=== PATIENT | male | born 1965 | race Two or more races ===

== ENCOUNTER 2017-09-23 09:00 | Emergency (ER) | payer OTHER ==
[~2017-09-23] VITALS: Wt 80.9 kg
[2017-09-23] MEDS ORDERED: ONDANSETRON 4 MG INJ IV STA (10:23)
[2017-09-23] MEDS ORDERED: HYDROmorphONE 1 MG/ML SYG IV STA (10:23)
[2017-09-23 10:52] LABS: BASOPHIL # 0.1 10^3/ul (0.0-0.1); BASOPHILS % 0.7 % (0.0-2.0); EOSINOPHILS # 0.3 10^3/ul (0.0-0.5); EOSINOPHILS % 2.8 % (0.0-7.0); HEMOGLOBIN 15.9 g/dl (14.0-18.0); LYMPHOCYTES # 2.2 10^3/ul (0.8-2.9); LYMPHOCYTES % 23.9 % (15.0-51.0); MEAN CORPUSCULAR HGB CONC 31.8 g/dl (32.0-37.0); MEAN CORPUSCULAR VOLUME 81.7 fl (82.0-101.0); MEAN PLATELET VOLUME 10.1 fl (7.4-10.4); MONOCYTE # 0.8 10^3/ul (0.3-0.9); NEUTROPHILS % 64.1 % (39.0-77.0); PLATELET COUNT 258 10^3/UL (140-415); RED BLOOD COUNT 6.12 10^6/ul (4.70-6.10); RED CELL DISTRIBUTION WIDTH 14.5 % (11.5-14.5); WHITE BLOOD COUNT 9.4 10^3/ul (4.8-10.8)
[2017-09-23 11:13] LABS: ALBUMIN 4.2 g/dl (3.3-4.9); ALBUMIN/GLOBULIN RATIO 1.05; BILIRUBIN,INDIRECT 0.2 mg/dl (0-1.1); BILIRUBIN,TOTAL 0.2 mg/dl (0.2-1.3); CALCIUM 8.6 mg/dl (8.4-10.2); CREATININE 0.82 mg/dl (0.61-1.24); POTASSIUM 3.9 mmol/L (3.5-5.1); TOTAL PROTEIN 8.2 g/dl (6.1-8.1)
--- NOTE | 2017-09-23 12:01 | ERD ---
ER Documentation Chief Complaint Chief Complaint llq pain w diarrhea HPI This a 52 male complains of left lower quadrant pain and diarrhea over the past 2-3 days. Diarrhea is nonbloody. Pain is described as sharp and nonradiating is located in the left lower quadrant with occasional crampy episodes. No back pain dysuria hematuria no chest pain shortness of breath no prior history of colon disease or diverticulitis. Pain is currently moderate ROS All systems reviewed and are negative except as per history of present illness. Medications Home Meds Active Scripts Hydrocodone/Acetaminophen ([place] 10-325 Tablet) 1 Each Tablet, 1 TAB PO Q6H Y for PAIN, #20 TAB Prov:RICARDO SCOTTSTLOIS A. DO 09/23/17 Metronidazole* (Flagyl*) 500 Mg Tablet, 500 MG PO TID for 10 Days, TAB Prov:LEKKOS,RICARDOSTOLOS A. DO 09/23/17 Ciprofloxacin Hcl* (Ciprofloxacin Hcl*) 500 Mg Tablet, 500 MG PO BID for 10 Days , TAB Prov:TAWNYA SCOTTS A. DO 09/23/17 Allergies Allergies: Coded Allergies: No Known Allergy (Unverified , 09/23/17) PMhx/Soc History of Surgery: Yes (HERNIA REPAIR KIDNEY STONES) Anesthesia Reaction: No Hx Neurological Disorder: No Hx Respiratory Disorders: No Hx Cardiac Disorders: No Hx Psychiatric Problems: No Hx Miscellaneous Medical Probl: No Hx Substance Use: No Hx Tobacco Use: No Smoking Status: Never smoker FmHx Family History: No coronary disease Physical Exam Vitals Vital Signs Date Time Temp Pulse Resp B/P Pulse Ox O2 Delivery O2 Flow Rate FiO2 09/23/17 09:10 98.0 74 20 168/95 98 Physical Exam Const: Well-developed, well-nourished Head: Atraumatic, normocephalic Eyes: Normal Conjunctiva, PERRLA, EOMI, normal sclera, no nystagmus ENT: Normal External Ears, Nose and Mouth, moist mucus membranes. Neck: Full range of motion. No meningismus, no lymphadenopathy. Resp: Clear to auscultation bilaterally, no wheezing, rhonchi, rales Cardio: Regular rate and rhythm, no murmurs, S1 S2 present Abd: Soft, moderate left lower quadrant pain, non distended. Normal bowel sounds, no guarding or rebound, no pulsitile abdominal masses or bruits Skin: No petechiae or rashes, no ecchymosis , no maculopapular rash Back: No midline or flank tenderness Ext: No cyanosis, or edema, FROM x 4, normal inspection, neurovascularly intact x 4 Neur: Awake and alert, STR 5/5 x 4, sensation intact x 4, no focal findings, cerebellum intact Psych: Normal Mood and Affect Result Diagram: 09/23/17 1035 09/23/17 1035 Results 24 hrs Laboratory Tests Test 09/23/17 10:35 White Blood Count 9.410^3/ul Red Blood Count 6.1210^6/ul Hemoglobin 15.9g/dl Hematocrit 50.0% Mean Corpuscular Volume 81.7fl Mean Corpuscular Hemoglobin 26.0pg Mean Corpuscular Hemoglobin Concent 31.8g/dl Red Cell Distribution Width 14.5% Platelet Count 58942^3/UL Mean Platelet Volume 10.1fl Neutrophils % 64.1% Lymphocytes % 23.9% Monocytes % 8.0% Eosinophils % 2.8% Basophils % 0.7% Nucleated Red Blood Cells % 0.0/100WBC Neutrophils # 6.010^3/ul Lymphocytes # 2.210^3/ul Monocytes # 0.810^3/ul Eosinophils # 0.310^3/ul Basophils # 0.110^3/ul Nucleated Red Blood Cells # 0.010^3/ul Sodium Level 145mmol/L Potassium Level 3.9mmol/L Chloride Level 108mmol/L Carbon Dioxide Level 27mmol/L Anion Gap 14 Blood Urea Nitrogen 12mg/dl Creatinine 0.82mg/dl Glucose Level 94mg/dl Calcium Level 8.6mg/dl Total Bilirubin 0.2mg/dl Direct Bilirubin 0.00mg/dl Indirect Bilirubin 0.2mg/dl Aspartate Amino Transf (AST/SGOT) 32IU/L Alanine Aminotransferase (ALT/SGPT) 45IU/L Alkaline Phosphatase 81IU/L Total Protein 8.2g/dl Albumin 4.2g/dl Globulin 4.00g/dl Albumin/Globulin Ratio 1.05 Current Medications Medications (Trade) Dose Ordered Sig/Faizan Route PRN Reason Start Time Stop Time Status Last Admin Dose Admin Hydromorphone HCl (Dilaudid) 1 mg ONCE STAT IV 09/23/17 10:23 09/23/17 10:25 DC Ondansetron HCl (Zofran Inj) 4 mg ONCE STAT IV 09/23/17 10:23 09/23/17 10:25 DC IV Flush 10 ml 10 ml STK-MED ONCE .ROUTE 09/23/17 12:06 09/23/17 12:07 DC Sodium Chloride (NS) 100 ml @ ud STK-MED ONCE .ROUTE 09/23/17 12:06 09/23/17 12:07 DC Iohexol (Omnipaque 300mg/ ml) 150 ml STK-MED ONCE .ROUTE 09/23/17 12:06 09/23/17 12:07 DC Procedures/MDM PROCEDURE: CT ABDOMEN AND PELVIS WITH IV CONTRAST. CLINICAL INDICATION: Left lower quadrant pain TECHNIQUE: CT scan of the abdomen and pelvis without contrast was performed on a multidetector high-resolution CT scanner following the use of IV contrast. 90 cc Omnipaque-300 was administered. Coronal and sagittal reformatted images were obtained from the axial source images. Images were reviewed on a high- resolution PACS workstation. The total exam CTDI equals 15.3 mGy and the total exam DLP equals 946 mGy-cm. One or more of the following dose reduction techniques were used: Automated exposure control. Adjustment of the mA and/or kV according to patient size. Use of iterative reconstruction technique. DICOM images are available. COMPARISON: None FINDINGS: CT abdomen: The lung bases are clear. The heart size is within limits. There is no significant pericardial effusion. Hepatic morphology is within limits. No gross masses or lesions. Gallbladder is unremarkable. No evidence of intrahepatic or extrahepatic biliary dilatation. The spleen and pancreas are within limits. Both adrenal glands are within normal limits. Both kidneys are in normal anatomic position. No evidence of obstruction or hydronephrosis. No gross renal/ureteric calculi. The visualized GI tract demonstrates normal caliber loops of small and large bowel. No evidence of bowel obstruction. The appendix is within limits. The aorta is unremarkable. There is no significant retroperitoneal lymphadenopathy. CT pelvis: The bladder demonstrates thickening of the ernst. There is diffuse diverticulosis of the colon, most severe within the left colon and sigmoid colon. There is a focal fat containing lesion measuring 1.4 cm adjacent to the proximal sigmoid colon with adjacent fat stranding and inflammation. There is also inflammation of the proximal adjacent sigmoid colon. The prostate gland is normal size. No significant pelvic lymphadenopathy. No significant free fluid. No gross focal fluid collections. The visualized osseous structures appears to be within normal limits. IMPRESSION: 1. ACUTE INFLAMMATION WITHIN LEFT LOWER QUADRANT. THERE IS A 1.4 CM FAT- CONTAINING LESION ADJACENT TO PROXIMAL SIGMOID COLON WITH ADJACENT FAT STRANDING. FINDINGS ARE LIKELY CONSISTENT WITH BENIGN EPIPLOIC APPENDAGITIS. THERE IS ALSO MILD ADJACENT INFLAMMATION OF THE PROXIMAL SIGMOID COLON. 2. Diffuse colonic diverticulosis most severe within the left colon and sigmoid colon. 3. Thickening of the wall the bladder, which may represent infectious versus inflammatory cystitis. 4. No free fluid or free air. No gross focal fluid collections. 5. No evidence of bowel obstruction. The appendix is within normal limits. RPTAT: AARR Physician Annel Date Time Electronically viewed and signed by Physician Annel on 09/23/2017 12:33 JL/ CC: JUAN SCOTT DO Discussed with the patient home care and signs and symptoms to return. Will treat with diverticulitis with Cipro Flagyl and pain control Departure Diagnosis: Primary Impression: Diverticulitis Additional Impression: Appendicitis epiploica Condition: Stable JUAN SCOTT DO Sep 23, 2017 12:01
[2017-09-23] MEDS ORDERED: SOD CHLORIDE 0.9% 100 ML ONE (12:06)
[2017-09-23] MEDS ORDERED: IOHEXOL 300MG/ML 150 ML BTL ONE (12:06)
--- NOTE | 2017-09-23 12:33 | RADRPT ---
PROCEDURE: CT ABDOMEN AND PELVIS WITH IV CONTRAST. CLINICAL INDICATION: Left lower quadrant pain TECHNIQUE: CT scan of the abdomen and pelvis without contrast was performed on a multidetector hig h-resolution CT scanner following the use of IV contrast. 90 cc Omnipaque-300 was administered. María Elena nal and sagittal reformatted images were obtained from the axial source images. Images were reviewed on a high-resolution PACS workstation. The total exam CTDI equals 15.3 mGy and the total exam DLP e quals 946 mGy-cm. One or more of the following dose reduction techniques were used: Automated exposure control. Adjustment of the mA and/or kV according to patient size. Use of iterative reconstruction technique. DICOM images are available. COMPARISON: None FINDINGS: CT abdomen: The lung bases are clear. The heart size is within limits. There is no significant pericardial effus ion. Hepatic morphology is within limits. No gross masses or lesions. Gallbladder is unremarkable. No christiano dence of intrahepatic or extrahepatic biliary dilatation. The spleen and pancreas are within limits. Both adrenal glands are within normal limits. Both kidneys are in normal anatomic position. No evidence of obstruction or hydronephrosis. No gross renal/ureteric calculi. The visualized GI tract demonstrates normal caliber loops of small and large bowel. No evidence of b owel obstruction. The appendix is within limits. The aorta is unremarkable. There is no significant retroperitoneal lymphadenopathy. CT pelvis: The bladder demonstrates thickening of the ernst. There is diffuse diverticulosis of the colon, most severe within the left colon and sigmoid colon. There is a focal fat containing lesion measuring 1. 4 cm adjacent to the proximal sigmoid colon with adjacent fat stranding and inflammation. There is a lso inflammation of the proximal adjacent sigmoid colon. The prostate gland is normal size. No signi ficant pelvic lymphadenopathy. No significant free fluid. No gross focal fluid collections. The visualized osseous structures appears to be within normal limits. IMPRESSION: 1. ACUTE INFLAMMATION WITHIN LEFT LOWER QUADRANT. THERE IS A 1.4 CM FAT-CONTAINING LESION ADJACENT T O PROXIMAL SIGMOID COLON WITH ADJACENT FAT STRANDING. FINDINGS ARE LIKELY CONSISTENT WITH BENIGN EPI PLOIC APPENDAGITIS. THERE IS ALSO MILD ADJACENT INFLAMMATION OF THE PROXIMAL SIGMOID COLON. 2. Diffuse colonic diverticulosis most severe within the left colon and sigmoid colon. 3. Thickening of the wall the bladder, which may represent infectious versus inflammatory cystitis. 4. No free fluid or free air. No gross focal fluid collections. 5. No evidence of bowel obstruction. The appendix is within normal limits. RPTAT: AARR Myles Campa Physician Date Time Electronically viewed and signed by Myles Campa Physician on 09/23/2017 12:33 JL/
[2017-09-23] MEDS ORDERED: CIPR500T4 PO (13:58)
[2017-09-23] MEDS ORDERED: HYDR-902 PO (13:58)
[2017-09-23] MEDS ORDERED: METR500T PO (13:58)
[2017-09-23 14:10] VITALS: BP 130/72; PULSE 74; RESP 20
== END 2017-09-23 14:10 | disposition home or self-care (01) ==
LOC: E/R 09:00
DX: K57.32 Diverticulitis of large intestine without perforation or abscess without bleeding (principal); K36 Other appendicitis; R40.2142 Coma scale, eyes open, spontaneous, at arrival to emergency department; R40.2252 Coma scale, best verbal response, oriented, at arrival to emergency department; R40.2362 Coma scale, best motor response, obeys commands, at arrival to emergency department
CPT/HCPCS: 74177; 80053; 85025; Q9967; Z7502; Z7610